=== PATIENT | male | born 2000 | race Caucasian/White ===

== ENCOUNTER 2020-06-30 06:57 | Outpatient (NON) | payer BC, SELFPAY ==
[2020-06-30 18:46] LABS: SARS-CoV-2 RNA PCR Positive
== END 2020-06-30 06:58 ==
LOC: ANHCOVIDDT 06:59
PROVIDERS: Visit Provider Clinical Nurse Specialist
DX: U07.1 COVID-19 (principal); R50.9 Fever, unspecified
CPT/HCPCS: 87635; C9803; U0003

== ENCOUNTER 2021-05-14 13:43 | Outpatient (CLI) | payer BC, SELFPAY ==
--- NOTE | ~2021-05-14 | XR_ITS ---
XR knee RT 2V 05/14/2021 14:04 INDICATION: Right knee pain PROCEDURE: 2 views right knee COMPARISON: No prior studies for comparison. FINDINGS: Fracture, dislocation or subluxation is not identified. No significant joint effusion. The soft tissues appear within normal limits. No foreign bodies are identified. IMPRESSION: 1: No significant bone or joint abnormality. Reviewed, dictated and finalized at location A.
--- NOTE | ~2021-05-14 | XR_ITS ---
XR knee LT 2V 05/14/2021 14:04 INDICATION: Left knee pain PROCEDURE: 2 views left knee COMPARISON: No prior studies for comparison. FINDINGS: Fracture, dislocation or subluxation is not identified. No significant joint effusion. The soft tissues appear within normal limits. No foreign bodies are identified. IMPRESSION: 1: NO ACUTE BONE OR JOINT ABNORMALITY IDENTIFIED. Reviewed, dictated and finalized at location A.
== END 2021-05-14 13:44 | disposition home or self-care (01) ==
LOC: ANHIMG 13:47
PROVIDERS: PCP Internal Medicine; Visit Provider Nurse Practitioner
DX: M25.561 Pain in right knee (principal); M25.562 Pain in left knee
CPT/HCPCS: 73560

== ENCOUNTER 2022-10-08 11:29 | Outpatient (CLI) | payer BC, SELFPAY ==
[2022-10-08 18:41] LABS: Basophils Absolute Auto 0.1 K/mm3 (0.0-0.1); Basophils Percent Auto 1.2 % (0.2-1.2); Eosinophils Absolute Auto 0.1 K/mm3 (0-0.3); Eosinophils Percent Auto 2.1 % (0-4.4); Hemoglobin 15.9 g/dL (14.0-18.0); Immature Granulocyte Absolute 0.03 K/mm3 (0.00-0.031); Immature Granulocyte Percent A 0.6 % (0-0.5); Lymphocytes Absolute Auto 2.08 K/mm3 (0.9-3.2); Mean Corpuscular HGB Conc 34.6 g/dl (32-36); Mean Corpuscular Hemoglobin 30.3 pg (26-34); Mean Corpuscular Volume 87.6 fl (80-100); Monocytes Absolute Auto 0.5 K/mm3 (0.1-0.6); Monocytes Percent Auto 9.6 % (2.6-8.5); Neutrophils Absolute Auto 2.4 K/mm3 (1.3-6.7); Neutrophils Percent Auto 46.5 % (45.5-73.1); Platelet Count Result 177 k/mm3 (150-375); Red Blood Count 5.25 M/mm3 (4.6-6.20); Red Cell Distribution Width 11.5 % (11.5-14.5); White Blood Count 5.2 K/mm3 (4.5-10.0)
[2022-10-08 21:30] LABS: Alanine Aminotransferase 17 U/L (6-50); Albumin Level 5.1 g/dL (3.5-5.1); Alkaline Phosphatase 60 U/L (38-126); Anion Gap 12 mmol/L (8-16); Aspartate Amino Transferase 24 U/L (17-59); Blood Urea Nitrogen 15 mg/dL (9-20); Carbon Dioxide 25 mmol/L (22-30); Chloride 106 mmol/L (98-107); Estimated Glomerular Filt Rate > 60; Glucose 102 mg/dL (65-110); Potassium 4.8 mmol/L (3.4-5.0); Sodium 143 mmol/L (137-145)
[2022-10-12 14:13] LABS: Testosterone Free 139.9 pg/mL (35.0-155.0); Testosterone Total 571 ng/dL (250-1100)
== END 2022-10-08 11:30 | disposition home or self-care (01) ==
LOC: ANHGOSHLAB 11:33
PROVIDERS: PCP Internal Medicine; Visit Provider Clinical Nurse Specialist
DX: R53.83 Other fatigue (principal); E55.9 Vitamin D deficiency, unspecified
CPT/HCPCS: 36415; 80053; 82306; 84402; 84403; 84443; 85025

== ENCOUNTER 2023-12-17 10:59 | Outpatient (CLI) | payer BC, SELFPAY ==
--- NOTE | ~2023-12-17 | US_ITS ---
EXAMINATION: US scrotum doppler DATE: 12/17/2023 11:20 INDICATION: Right lower quadrant abdominal pain, unspecified. TECHNIQUE: Grayscale and Doppler ultrasound images of the testes were obtained. COMPARISON: CT abdomen and pelvis 03/19/2019 FINDINGS: The right testis measures 3.9 x 3.5 x 2.4 cm. The left testis measures 4.5 x 3.1 x 2.2 cm. There is normal vascular flow to both testes. The right epididymis is normal with normal vascular ronan w. The left epididymis demonstrates a 5 mm cyst.. There is no varicocele or hydrocele. There is no he rnia. IMPRESSION: 1. No etiology for the patient's symptoms. Reviewed, dictated and finalized at location A.
== END 2023-12-17 11:00 ==
PROVIDERS: PCP Internal Medicine; Visit Provider Nurse Practitioner
DX: R10.30 Lower abdominal pain, unspecified (principal); N50.819 Testicular pain, unspecified
CPT/HCPCS: 76870; 93976

== ENCOUNTER 2025-05-12 10:28 | Outpatient (CLI) | payer BC, SELFPAY ==
--- NOTE | ~2025-05-12 | US_ITS ---
EXAMINATION: US soft tissue groin RT, 05/12/2025 10:30 CDT HISTORY: R10.31 - Right lower quadrant pain Comparison: None Technique: Youngblood-scale and color Doppler images were obtained. Findings: Correlating with the palpable area there is a probable tiny identified with the defect in the abdominal wall measuring 2.7 cm medial to the vessels. IMPRESSION: Probable ventral hernia detailed above. Correlate with CT in Valsal[place]. Reviewed, dictated and finalized at location P. IMPRESSION: Probable ventral hernia detailed above. Correlate with CT in [place].
== END 2025-05-12 10:29 | disposition home or self-care (01) ==
DX: R10.31 Right lower quadrant pain (principal)
CPT/HCPCS: 76882

== ENCOUNTER 2025-06-01 10:09 | Outpatient (CLI) | payer BC, SELFPAY ==
--- OUTSIDE RECORDS SUMMARY | 2025-06-01 11:23 | XMS_ITS | Patient Health Record ---
Author Organization [facility] Address [address] [place] [address] Care Team Providers Care Poultry Trimmer Name Role Phone Owen Reyes Unavailable [phone] Reason For Referral No Information Medications Medication SIG (Take, Route, Frequency, Duration) Notes Start Date End Date Status Citalopram Hydrobromide 20 M G Tablet Oral 11/15/2021 Active Cholecalciferol 1.25 MG (32652 UT) Capsule Oral 11/15/2021 Active Social History Social History Additional Details Category Social Info Options Details Migrated Social History Migrated Social History Alcohol Intake: Occasional 11/15/2021,Tobacco Years: Never smoker 11/15/2021 Plan Of Treatment No Information Insurance Providers Payer Name Payer Address Payer Phone Subscriber Number Group Number Insured Name Patient Relationship to Insured Coverage Start Date Coverage End Date [facility] [address] [place] [address] [id number] ESAU SUTHERLAND Child - Insured has Financial Responsibility Medical (General) History Surgical History Surgery Date(Month/Year) Appendectomy (99269)
== END 2025-06-01 10:10 | disposition home or self-care (01) ==
PROVIDERS: PCP Internal Medicine; Visit Provider Surgery
DX: Z01.818 Encounter for other preprocedural examination (principal); K40.90 Unilateral inguinal hernia, without obstruction or gangrene, not specified as recurrent
CPT/HCPCS: 36415; 86850; 86900; 86901

== ENCOUNTER 2025-06-07 00:38 | Day surgery (SDC) | payer BC, SELFPAY ==
--- NOTE | 2025-05-30 15:22 | SUR.PREOP ---
[facility] has started construction of its new state of the art ER which will open Spring 2026. With this, we anticipate parking may be a challenge for some our surgical patients and families. Parking spaces are limited but are available for all Surgical, obstetrics, and ER patients sharing this lot. If you arrive and find you are having a hard time finding a parking space, please note that we understand the challenges, please drive around the hospital and park near Hospital Entrance 1. When you enter this entrance, you can ask a volunteer to direct or take you back to the surgical waiting area to check in. We appreciate everyone?s understanding of these expected challenges while we build for your future. Report to the Outpatient Waiting Room, entrance under the green pavilion located off [address], at time _730AM_ on date _06/08/25_. Planned Procedure Time: _930__.? Time changes happen often and if your time is changed the preop area will call you the afternoon before. - You and your visitor will be asked to self-screen and do not enter if you have any COVID symptoms. Please call surgeon if you need to reschedule. - A mask is optional within the hospital at this time. Patients may have clear liquids (water, carbonated beverages, clear teas, apple juice) until 3 hours prior to surgery with a maximum of 20 ounces. - No food from midnight until time of surgery and no smoking, or chewing tobacco (or any form of nicotine). No chewing gum, candy or mints. Take only the following medications with a SIP of water on the morning of surgery: __None_ DO NOT STOP ANY OF YOUR OTHER PRESCRIPTION MEDICATIONS PRIOR TO SURGERY EXCEPT THE FOLLOWING Hold all vitamins and supplements for 3 days per anesthesiologist. Medications to discontinue per physician _N/a__ Date to take last dose_n/a_ Please no make-up, nail somali, hairspray, perfume, deodorant, or body powder the day of surgery.? No jewelry (including any body piercings) or valuables the day of surgery, leave them at home.? Please take a shower or bath the night before, or the morning of, surgery with an antibacterial soap.? Wear comfortable, loose fitting clothing.? - Jewelry must be removed prior to entering the operating room.? Rings and piercings that are not removed may be cut off. - The hospital will not accept responsibility for valuables.? - Please leave all valuables, including medications, at home the day of surgery. If you are going home after surgery, a licensed airport shuttle driver must drive you home.? - NO public transportation without another adult if you receive anesthesia. - We recommend that an adult stay with you for 24 hours following discharge. - We also recommend that you do not drive, make important decision, drink alcoholic beverages, or take any drugs that were not prescribed by your health care provider for at least 24 hours after your discharge time. Follow any additional instructions given to you from your surgeon. Telephone instructions given to __Austin___and asked if any additional questions and then verbalized understanding. Patient advised to call surgeon office or pre surgery nurse liaison [phone] if any additional questions.
[2025-05-30 15:25] VITALS: BMI 25.0
[2025-06-07] VITALS (9 sets, daily range): BP systolic 92–134; BP diastolic 50–82; PULSE 55–84; RESP 12–20; TEMP 36.3–36.4; O2SAT 99–100
[2025-06-07] MEDS: ACETAMINOPHEN 500 MG TABLET 1000 MG PO (08:00)
[2025-06-07] MEDS: LACTATED RINGERS 1,000 ML 30 ML IV CONT ×3 (08:05→11:38)
[2025-06-07] MEDS: KETOROLAC 15 MG/ML VIAL (*BKC) IV PUSH (08:06)
--- NOTE | 2025-06-07 08:22 | WPDANESEPPF ---
Anes - Initial Pre Proc Eval Procedure: Operation Date: 06/07/25 09:30 Proposed Procedures p Laparoscopic Right Inguinal Hernia Repair with Mesh, Davinci Assisted - Jeff Stern DO Date/Time: 06/07/25 08:22 Surgeon: Jeff Stern DO Pre Op Diagnosis: right inguinal hernia Patient Data Age: 24 Gender: M Height: 1.88 m Weight: 88.6 kg Allergies Allergy/AdvReac Type Severity Reaction Status Date / Time No Known Allergies Allergy Verified 05/30/25 15:24 Home Medications ?Medication ?Instructions ?Recorded ?Confirmed ?Type No Home Medications 04/08/25 05/30/25 History Patient hx anesthesia problems: none Family hx anesthesia problems: none Results Review: All pre-operative results and documents have been reviewed as part of the pre-operative evaluation. [facility] Past Medical History Medical History (Updated 06/07/25 @ 08:22 by Robbie Walters MD) Screening for metabolic disorder Screening for lipid disorders Difficulty concentrating Bilateral knee pain Fever of unknown origin (FUO) DERIAN (generalized anxiety disorder) Surgical History Surgical History History of appendectomy 2019 Family History Family History Father Diabetes mellitus Anxiety Hypertension Social History Social History Social History: caffeine-none Smoking status: Never smoker Alcohol intake: never Alcohol use details: 2x/year Lack of Transportation: No Lack of Food: Never True Current Housing: I Have Housing Concerned About Future Housing: No Difficulty Paying Gas/Electric Bills: No Difficulty Paying for Meds: No Currently Unemployed: No Education: High School Diploma/GED Difficulty w/ Childcare or Family Care: No Living arrangements: with family Gender identity (if verbalized by the patient): Male Spiritual care concerns: No Anes - Eval Final PreProcedure Day of Procedure 06/07/25 08:22 Patient weight: normal Heart: regular rate and rhythm Lungs: clear to auscultation Airway: Mallampati scale class II Neurological: alert and oriented Last oral intake: >/= 8 hours ASA classification: I Emergent: no Anesthetic plan: proceed Anesthesia type and monitoring: general ETT and standard monitoring Results Review: All pre-operative results and documents have been reviewed as part of the pre-operative evaluation. Informed Consent: The patient's anesthetic plan and its attendant risks and benefits were discussed with the patient/family/POA. Questions were solicited and answers provided to the satisfaction of the patient/family/POA.
--- NOTE | 2025-06-07 08:54 | WPDHPUPDATE1 ---
History and Physical Update Update Date/Time: 06/07/25 08:54 History and Physical has been reviewed, including an updated exam of the patient. There are NO changes in the patient's condition. Risks, benefits, and alternatives have been discussed and questions answered. Patient agrees to proceed with procedure.
[2025-06-07] MEDS: ceFAZolin 2 GM in SODIUM CHLORIDE 0.9% IV 50 ML 100 ML IVPB (09:16)
[2025-06-07] MEDS: BUPIVACAINE/EPINEPHRINE 0.5% 50 ML VIAL 30 ML INFILTRATE (09:51)
--- NOTE | 2025-06-07 10:31 | W.PM.PROC2 ---
Procedure Note - Detailed Date of Procedure 06/07/25 Pre-op Diagnosis right inguinal hernia Post-op Diagnosis Same (Indirect RIH) Procedure Performed Laparoscopic right inguinal hernia repair with mesh, da Mayi assisted Surgeon Jeff Stern, Anesthesia General and Local (0.5% bupivacaine with epinephrine) Indications This is a 24-year-old man who presented with occasional right groin pain for the past couple months. He he had initially noted a slight bulge and pain about 5 years ago but he was having minimal symptoms at the time. Over the past month the symptoms have become more frequent. He was found to have a reducible right inguinal hernia on physical exam. Discussions were made with the patient about treatment options and decision was made to proceed with robotic assisted laparoscopic right inguinal hernia repair with mesh. Findings Robotic assisted laparoscopic right inguinal hernia repair with mesh was performed. The patient was found to have a small indirect right inguinal hernia. There was no evidence of left inguinal hernia. A robotic transabdominal preperitoneal approach was utilized for repair. Once a wide enough preperitoneal pocket was created and the hernia sac was reduced, I then placed a large right 3DMax mid mesh overlying the entire right myopectineal orifice. Description of Procedure Procedure as well as risks, benefits, and alternatives were discussed with the patient. Written consent was obtained and placed in chart prior to procedure. Patient was brought back to surgical suite. He was placed supine on operating table. Time-out was done to confirm patient and procedure. He was then intubated by Anesthesia Department. His abdomen was prepped and draped in sterile fashion using chlorhexidine prep. 0.5% bupivacaine with epinephrine was infiltrated at each location for incision. An 8 mm incision was made in the left lateral abdomen, and a 5 mm Optiview trocar was advanced through the abdominal layers under direct visualization. Once inside the abdominal cavity, carbon dioxide insufflation was used to create a pneumoperitoneum. A camera was inserted and the abdominal cavity was inspected. The patient was placed in slight Trendelenburg position. An 8 millimeter incision was made on the right lateral abdomen and an 8 millimeter trocar was inserted under direct visualization. Another 8 millimeter incision was made just superior to the umbilicus and an 8 millimeter trocar was inserted under direct visualization. The 5 mm port was then removed and this was replaced with another 8 mm robotic port. The robotic arms were brought up to the patient's bedside and secured to the ports. The camera and instruments were inserted. I then moved over to the robotic console and took control of the camera and instruments. After careful inspection of the abdominal cavity, I began scoring the peritoneum along the right lower quadrant using scissors with electrocautery. The preperitoneal plane was entered and this was carefully dissected caudally along the inferior epigastric vessels. Careful dissection with scissors with electrocautery and blunt dissection was used to continue this dissection. I dissected far enough laterally to allow for mesh placement, and also dissected medially to identify the pubic arch and Sp's ligament. The hernia sac was identified and carefully dissected posteriorly. The cord contents were also identified and the peritoneum was carefully dissected far enough posteriorly to allow for mesh placement. Once an adequate pocket was created, I then placed the mesh within the preperitoneal pocket and carefully unfolded it. The mesh was centered on the hernia defect with adequate overlap circumferentially. The inferior edge of the mesh was inspected to ensure that it was far enough away from the peritoneal edge. The mesh appeared in proper position overlying the entire myopectineal orifice. The mesh was secured using 3-0 Vicryl simple interrupted sutures in Sp's ligament, the superior medial edge, and superior lateral edge of the mesh. The peritoneum was then closed over the mesh using a 3-0 V-lock running absorbable suture. The robotic instruments were removed. The robotic arms were disengaged from the ports and moved away from the bedside. The patient was flattened out in bed, the ports were removed under direct visualization, and the pneumoperitoneum was released. The skin of the incisions was approximated using 4-0 Monocryl subcuticular suture, and Exofin glue was applied on top. The patient was awakened from anesthesia, extubated, and transferred to recovery. Implants Large right 3DMax mid mesh Estimated Blood Loss 5 Complications No immediate complications Condition Stable Disposition Same day [facility] Billing Surgery - Charge Forward: Surgery Billing
[2025-06-07] MEDS: fentaNYL CITRATE INJ (*CRX) 100 MCG/2 ML VIAL 25 MCG IV PUSH ×2 (10:48→10:58)
[2025-06-07] MEDS: oxyCODONE HCL (*CRX) 5 MG TAB IR PO (11:32)
== END 2025-06-07 12:30 | disposition home or self-care (01) ==
PROVIDERS: PCP Internal Medicine; Visit Provider Surgery
PROC: 8E0Y4CZ Robotic Assisted Procedure of Lower Extremity, Percutaneous Endoscopic Approach (ICD-10-PCS; CPT 49650; principal; 2025-06-07 09:30)
DX: K40.90 Unilateral inguinal hernia, without obstruction or gangrene, not specified as recurrent (principal); F41.9 Anxiety disorder, unspecified; Z98.890 Other specified postprocedural states
CPT/HCPCS: 49650; S2900; J0690; A9270; C1781; J1100; J1885; J2250; J2405; J2704; J3010; J7120